=== PATIENT | female | born 1970 | race Caucasian/White ===

== ENCOUNTER 2016-12-22 17:14 | Inpatient (IN) | payer OTHER ==
[~2016-12-22 17:14] MED LIST: ADVIL200 M1 PO; AMITIZA24 MC1 PO; BUSPIRONE HCL; BUSPIRONE HCL10 M2 PO; BUSPIRONE HCL30 M1 PO; BUSPIRONE HCL5 GM; CARAFATE1 GM/10 M1 PO; CETAPHIL TP; CHLORASEPTIC SO2 LOZ; CHOLESTYRAMINE P4 GM PO; CLOBETASOL PROP15 G1 TP; COMPAZINE25 M1 PR; FLAGYL500 M1 PO; HYDROCODON-ACE1 EA16 PO; KEFLEX500 M4 PO; KLOR-CON 1010 ME1 PO; LAMICTAL25 M2 PO; LAMOTRIGINE PO; LAMOTRIGINE100 M2 PO; LYRICA100 MG/CAP PO; LYRICA75 MG/CAP PO; MAGNESIUM250 M3 PO; MIRALAX17 G2 PO; NEURONTIN300 M1 PO; NICODERM CQ1 EAC2 TD; NITRO-BID1 INCH TP; NORCO 5-325 TA1 EACH PO; PERCOCET 10-321 EACH PO; PERCOCET 5-3251 EACH PO; POTASSIUM CHLO20 ME3 PO; POTASSIUM99 M5 PO; PRAZOSIN HCL2 M2 PO; PRISTIQ ER100 MG PO; PRISTIQ ER50 MG PO; PRISTIQ50 MG PO; PROTONIX40 M2 PO; TEMOVATE30 G1 TP; TOPAMAX200 MG; TOPAMAX200 MG PO; TRAZODONE HCL50 M1 PO; TYLENOL325 M2 PO; VITAMIN B-1100 M3 PO; WOMEN'S DAILY1 EAC4 PO; ZOFRAN ODT4 MG PO; ZOFRAN ODT8 MG PO; ZOFRAN4 M2 PO; [UNRECOGNIZED DRUG - OTHER]
[2016-12-22] MEDS ORDERED: PROCHLORPERAZINE PR (17:28)
[2016-12-22] MEDS ORDERED: [UNRECOGNIZED DRUG - OTHER] PR (17:28)
[2016-12-22 17:47] LABS: BASO % 0.2 % (0-2); HCT-HEMATOCRIT 41.5 % (34.0-49.0); HGB-HEMOGLOBIN 14.2 gm/dl (12.0-15.5); IMMATURE GRANULOCYTES ABSOLUTE 0.01 tho/cmm (0-0.03); IMMATURE GRANULOCYTES PERCENT 0.1 % (0-0.3); LYMPH % 7.6 % (20-45); LYMPH ABSOLUTE COUNT 0.8 tho/cmm (0.8-4.5); MCH (MEAN CORPUSCULAR HGB) 31.1 pg (28.0-32.0); MCHC MEAN CORPUSCULAR HGB CONC 34.2 % (32.0-36.0); MCV (MEAN CELL VOLUME) 90.8 fl (82.0-96.0); MEAN PLATELET VOLUME 9.6 cmc (9.4-12.4); MONO % 5.6 % (0-12); MONOCYTE ABSOLUTE COUNT 0.6 tho/cmm (0.0-1.2); NEUTROPHILS % 86.5 % (40-80); PLATELET COUNT 236 tho/cmm (150-450); RED BLOOD COUNT 4.57 mil/cmm (4.00-5.20); RED CELL DISTRIBUTION WIDTH 16.1 % (12.4-16.4); WHITE BLOOD COUNT 10.4 tho/cmm (4.0-10.0)
[2016-12-22 18:01] LABS: PREGNANCY-SERUM NEGATIVE (NEGATIVE)
[2016-12-22 18:02] LABS: ALB/GLOB RATIO 1.1 (0.8-2.0); ALBUMIN 4.3 g/dl (3.5-5.0); ALKALINE PHOSPHATASE 146 U/L (33-138); ALT/SGPT 55 U/L (12-78); BILIRUBIN,TOTAL 1.5 mg/dl (0-1.5); BLOOD UREA NITROGEN 7 mg/dl (6-24); CALCIUM 9.7 mg/dl (8.5-10.5); CARBON DIOXIDE-VENOUS 19 mmol/L (22-32); CHLORIDE 90 mmol/l (96-110); CREATININE 0.68 mg/dl (0.50-1.10); GLUCOSE 148 mg/dL (70-110); LIPASE 86 U/L (73-393); SODIUM 135 mmol/L (135-145); eGFR VALUE FOR BLACK >90 mL/Min
[2016-12-22 18:09] LABS: ANION GAP 29 mmol/L (0-20); AST/SGOT 74 U/L (10-40); POTASSIUM 3.1 mmol/L (3.7-5.1)
[2016-12-22 18:37] LABS: MAGNESIUM 1.6 mg/dl (1.3-2.6)
[2016-12-22 18:38] LABS: TSH-THYROID STIMULATING HORM. 1.87 uIU/ml (0.40-3.80)
[2016-12-22 20:57] LABS: URINE APPEARANCE CLEAR; URINE BILIRUBIN NEGATIVE (NEG); URINE BLOOD NEGATIVE (NEG); URINE COLOR YELLOW; URINE GLUCOSE (UA) NEGATIVE (NEG); URINE KETONE LARGE (NEG); URINE LEUKOCYTE ESTERASE NEGATIVE (NEG); URINE NITRITE NEGATIVE (NEG); URINE PROTEIN NEGATIVE (NEG)
[2016-12-23 06:24] LABS: ANION GAP 15 mmol/L (0-20); BLOOD UREA NITROGEN 3 mg/dl (6-24); CALCIUM 8.2 mg/dl (8.5-10.5); CARBON DIOXIDE-VENOUS 25 mmol/L (22-32); CHLORIDE 101 mmol/l (96-110); CREATININE 0.48 mg/dl (0.50-1.10); GLUCOSE 97 mg/dL (70-110); POTASSIUM 3.3 mmol/L (3.7-5.1); SODIUM 138 mmol/L (135-145); eGFR VALUE FOR BLACK >90 mL/Min
[2016-12-23 06:26] LABS: BASO % 0.2 % (0-2); EOS % 0.2 % (0-7); HGB-HEMOGLOBIN 11.9 gm/dl (12.0-15.5); IMMATURE GRANULOCYTES ABSOLUTE 0.02 tho/cmm (0-0.03); IMMATURE GRANULOCYTES PERCENT 0.2 % (0-0.3); LYMPH % 13.7 % (20-45); LYMPH ABSOLUTE COUNT 1.6 tho/cmm (0.8-4.5); MCH (MEAN CORPUSCULAR HGB) 30.5 pg (28.0-32.0); MCV (MEAN CELL VOLUME) 94.9 fl (82.0-96.0); MEAN PLATELET VOLUME 9.9 cmc (9.4-12.4); MONO % 11.7 % (0-12); MONOCYTE ABSOLUTE COUNT 1.4 tho/cmm (0.0-1.2); NEUTROPHIL ABSOLUTE COUNT 8.7 tho/cmm (1.6-8.0); NEUTROPHIL-AUTOMATED 8.7 tho/cmm (1.6-8.0); PLATELET COUNT 218 tho/cmm (150-450); RED CELL DISTRIBUTION WIDTH 16.9 % (12.4-16.4); WHITE BLOOD COUNT 11.8 tho/cmm (4.0-10.0)
[2016-12-23 06:43] LABS: MCHC MEAN CORPUSCULAR HGB CONC 32.2 % (32.0-36.0)
[2016-12-24 06:03] LABS: BASO % 0.4 % (0-2); EOS % 1.7 % (0-7); EOSINOPHIL ABSOLUTE COUNT 0.1 tho/cmm (0.0-0.7); HCT-HEMATOCRIT 34.8 % (34.0-49.0); HGB-HEMOGLOBIN 11.2 gm/dl (12.0-15.5); IMMATURE GRANULOCYTES ABSOLUTE 0.01 tho/cmm (0-0.03); IMMATURE GRANULOCYTES PERCENT 0.2 % (0-0.3); LYMPH % 26.8 % (20-45); LYMPH ABSOLUTE COUNT 1.3 tho/cmm (0.8-4.5); MCH (MEAN CORPUSCULAR HGB) 30.9 pg (28.0-32.0); MCHC MEAN CORPUSCULAR HGB CONC 32.2 % (32.0-36.0); MCV (MEAN CELL VOLUME) 95.9 fl (82.0-96.0); MEAN PLATELET VOLUME 9.8 cmc (9.4-12.4); MONO % 10.5 % (0-12); MONOCYTE ABSOLUTE COUNT 0.5 tho/cmm (0.0-1.2); NEUTROPHIL ABSOLUTE COUNT 2.9 tho/cmm (1.6-8.0); NEUTROPHIL-AUTOMATED 2.9 tho/cmm (1.6-8.0); NEUTROPHILS % 60.4 % (40-80); PLATELET COUNT 161 tho/cmm (150-450); RED BLOOD COUNT 3.63 mil/cmm (4.00-5.20); RED CELL DISTRIBUTION WIDTH 16.6 % (12.4-16.4)
[2016-12-24 06:17] LABS: ANION GAP 10 mmol/L (0-20); BLOOD UREA NITROGEN 1 mg/dl (6-24); CALCIUM 8.1 mg/dl (8.5-10.5); CARBON DIOXIDE-VENOUS 30 mmol/L (22-32); CHLORIDE 106 mmol/l (96-110); CREATININE 0.43 mg/dl (0.50-1.10); GLUCOSE 87 mg/dL (70-110); MAGNESIUM 1.9 mg/dl (1.3-2.6); POTASSIUM 3.2 mmol/L (3.7-5.1); SODIUM 143 mmol/L (135-145); eGFR VALUE FOR BLACK >90 mL/Min
[2016-12-24 06:22] LABS: WHITE BLOOD COUNT 4.7 tho/cmm (4.0-10.0)
[2016-12-25 05:04] LABS: ANION GAP 14 mmol/L (0-20); BLOOD UREA NITROGEN 1 mg/dl (6-24); CALCIUM 8.4 mg/dl (8.5-10.5); CARBON DIOXIDE-VENOUS 24 mmol/L (22-32); CHLORIDE 105 mmol/l (96-110); CREATININE 0.36 mg/dl (0.50-1.10); GLUCOSE 90 mg/dL (70-110); SODIUM 139 mmol/L (135-145); eGFR VALUE FOR BLACK >90 mL/Min
[2016-12-25 05:22] LABS: POTASSIUM 3.6 mmol/L (3.7-5.1)
[2016-12-25] MEDS ORDERED: TYLENOL325 M2 PO (13:04)
[2016-12-25] MEDS ORDERED: ATIVAN1 M2 PO (13:05)
[2016-12-25] MEDS ORDERED: COLESTID1 GM PO (13:07)
[2017-05-10] MEDS ORDERED: TRANSDERM-SCOP1 EACH TD (11:02)
[2017-05-10] MEDS ORDERED: ERYTHROMYCIN1 GM OP (11:03)
[2017-05-10] MEDS ORDERED: MAGNESIUM OXID400 M1 PO (11:03)
[2017-05-10] MEDS ORDERED: ABILIFY5 M1 PO (11:04)
[2017-05-14] MEDS ORDERED: TUMS200 MG PO (17:00)
[2017-05-14] MEDS ORDERED: POTASSIUM CHLO20 ME3 PO (17:01)
== END 2016-12-25 13:40 | DRG 392 ==
LOC: EDMED 17:14 → EMR2 21:55 → 5WE 22:10
PROVIDERS: Emergency Medicine; Internal Medicine; ADMIT Hospitalist
PROC: 0DBP8ZX Excision of Rectum, Via Natural or Artificial Opening Endoscopic, Diagnostic (ICD-10-PCS; principal; 2016-12-25)
PROC: 0DBH8ZX Excision of Cecum, Via Natural or Artificial Opening Endoscopic, Diagnostic (ICD-10-PCS; 2016-12-25)
DX: K52.9 Noninfective gastroenteritis and colitis, unspecified (principal); G62.9 Polyneuropathy, unspecified; K90.0 Celiac disease; E87.6 Hypokalemia; K58.9 Irritable bowel syndrome, unspecified; F32.9 Major depressive disorder, single episode, unspecified; Z86.73 Personal history of transient ischemic attack (TIA), and cerebral infarction without residual deficits; Z87.820 Personal history of traumatic brain injury; Z88.0 Allergy status to penicillin; F17.210 Nicotine dependence, cigarettes, uncomplicated; R03.0 Elevated blood-pressure reading, without diagnosis of hypertension; Z87.11 Personal history of peptic ulcer disease; K62.1 Rectal polyp; K44.9 Diaphragmatic hernia without obstruction or gangrene
CPT/HCPCS: G0480; J0360; J0780; J1200; J1956; J2270; J2405; J2765; J3475; J3480; J7030; P9612; Q9967

== ENCOUNTER 2017-01-03 12:12 | Inpatient (IN) | payer OTHER ==
[~2017-01-03 12:12] MED LIST changes: +ATIVAN1 M2 PO; +COLESTID1 GM PO; +PROCHLORPERAZINE PR; +[UNRECOGNIZED DRUG - OTHER] PR
[2017-01-03 12:53] LABS: BASO % 0.2 % (0-2); HCT-HEMATOCRIT 42.6 % (34.0-49.0); HGB-HEMOGLOBIN 14.5 gm/dl (12.0-15.5); IMMATURE GRANULOCYTES ABSOLUTE 0.03 tho/cmm (0-0.03); IMMATURE GRANULOCYTES PERCENT 0.2 % (0-0.3); LYMPH ABSOLUTE COUNT 0.8 tho/cmm (0.8-4.5); MCH (MEAN CORPUSCULAR HGB) 30.9 pg (28.0-32.0); MONOCYTE ABSOLUTE COUNT 0.7 tho/cmm (0.0-1.2); NEUTROPHIL ABSOLUTE COUNT 12.5 tho/cmm (1.6-8.0); NEUTROPHIL-AUTOMATED 12.5 tho/cmm (1.6-8.0); NEUTROPHILS % 88.6 % (40-80); PLATELET COUNT 288 tho/cmm (150-450); RED BLOOD COUNT 4.69 mil/cmm (4.00-5.20); RED CELL DISTRIBUTION WIDTH 16.9 % (12.4-16.4); WHITE BLOOD COUNT 14.1 tho/cmm (4.0-10.0)
[2017-01-03 12:56] LABS: MCV (MEAN CELL VOLUME) 90.8 fl (82.0-96.0)
[2017-01-03] MEDS ORDERED: AMITIZA24 MC1 PO (12:58)
[2017-01-03] MEDS ORDERED: NORCO 5-325 TA1 EACH PO (12:58)
[2017-01-03 13:06] LABS: ALB/GLOB RATIO 1.1 (0.8-2.0); ALBUMIN 4.5 g/dl (3.5-5.0); ALCOHOL (ETOH) <10 mg/dl (<10); ALKALINE PHOSPHATASE 162 U/L (33-138); ALT/SGPT 94 U/L (12-78); ANION GAP 27 mmol/L (0-20); AST/SGOT 61 U/L (10-40); BILIRUBIN,TOTAL 1.3 mg/dl (0-1.5); BLOOD UREA NITROGEN 9 mg/dl (6-24); CALCIUM 9.6 mg/dl (8.5-10.5); CARBON DIOXIDE-VENOUS 21 mmol/L (22-32); CHLORIDE 86 mmol/l (96-110); CREATININE 0.88 mg/dl (0.50-1.10); GLUCOSE 171 mg/dL (70-110); LIPASE 95 U/L (73-393); POTASSIUM 3.3 mmol/L (3.7-5.1); SODIUM 131 mmol/L (135-145); eGFR VALUE FOR BLACK >90 mL/Min
[2017-01-03 13:14] LABS: C-REACTIVE PROTEIN <0.3 mg/dl (0-0.9)
[2017-01-03 13:35] LABS: URINE BILIRUBIN NEGATIVE (NEG); URINE BLOOD NEGATIVE (NEG); URINE GLUCOSE (UA) NEGATIVE (NEG); URINE KETONE LARGE (NEG); URINE LEUKOCYTE ESTERASE NEGATIVE (NEG); URINE NITRITE NEGATIVE (NEG); URINE PROTEIN SMALL (NEG)
[2017-01-03 13:36] LABS: URINE APPEARANCE CLEAR; URINE COLOR YELLOW
[2017-01-03 13:41] LABS: URINE RBC 0 /[HPF] (0-5); URINE WBC 0 /[HPF] (0-5)
[2017-01-03 19:39] LABS: INR 0.9 INR (0.9-1.1)
[2017-01-03 19:50] LABS: ANION GAP 16 mmol/L (0-20); BLOOD UREA NITROGEN 8 mg/dl (6-24); CALCIUM 7.9 mg/dl (8.5-10.5); CARBON DIOXIDE-VENOUS 23 mmol/L (22-32); CHLORIDE 99 mmol/l (96-110); CREATININE 0.54 mg/dl (0.50-1.10); GLUCOSE 110 mg/dL (70-110); POTASSIUM 3.4 mmol/L (3.7-5.1); SODIUM 135 mmol/L (135-145); eGFR VALUE FOR BLACK >90 mL/Min
[2017-01-03 20:08] LABS: PROCALCITONIN 0.09 ng/ml (0.05-0.09)
[2017-01-03 20:30] LABS: ALB/GLOB RATIO 1.2 (0.8-2.0); ALBUMIN 3.4 g/dl (3.5-5.0); ALKALINE PHOSPHATASE 120 U/L (33-138); ALT/SGPT 65 U/L (12-78); ANION GAP 14 mmol/L (0-20); AST/SGOT 41 U/L (10-40); BILIRUBIN,TOTAL 0.7 mg/dl (0-1.5); BLOOD UREA NITROGEN 8 mg/dl (6-24); CALCIUM 8.1 mg/dl (8.5-10.5); CARBON DIOXIDE-VENOUS 26 mmol/L (22-32); CHLORIDE 98 mmol/l (96-110); GLUCOSE 112 mg/dL (70-110); POTASSIUM 3.4 mmol/L (3.7-5.1); SODIUM 135 mmol/L (135-145); eGFR VALUE FOR BLACK >90 mL/Min
[2017-01-04 06:33] LABS: BASO % 0.3 % (0-2); EOS % 0.6 % (0-7); EOSINOPHIL ABSOLUTE COUNT 0.1 tho/cmm (0.0-0.7); HCT-HEMATOCRIT 36.4 % (34.0-49.0); HGB-HEMOGLOBIN 11.9 gm/dl (12.0-15.5); IMMATURE GRANULOCYTES ABSOLUTE 0.02 tho/cmm (0-0.03); IMMATURE GRANULOCYTES PERCENT 0.2 % (0-0.3); LYMPH % 19.9 % (20-45); LYMPH ABSOLUTE COUNT 1.9 tho/cmm (0.8-4.5); MCH (MEAN CORPUSCULAR HGB) 30.7 pg (28.0-32.0); MCHC MEAN CORPUSCULAR HGB CONC 32.7 % (32.0-36.0); MCV (MEAN CELL VOLUME) 93.8 fl (82.0-96.0); MEAN PLATELET VOLUME 9.7 cmc (9.4-12.4); MONO % 6.6 % (0-12); MONOCYTE ABSOLUTE COUNT 0.6 tho/cmm (0.0-1.2); NEUTROPHIL ABSOLUTE COUNT 7.1 tho/cmm (1.6-8.0); NEUTROPHIL-AUTOMATED 7.1 tho/cmm (1.6-8.0); NEUTROPHILS % 72.4 % (40-80); PLATELET COUNT 238 tho/cmm (150-450); RED BLOOD COUNT 3.88 mil/cmm (4.00-5.20); RED CELL DISTRIBUTION WIDTH 17.2 % (12.4-16.4); WHITE BLOOD COUNT 9.7 tho/cmm (4.0-10.0)
--- NOTE | 2017-01-04 14:05 | NUR ---
VIRTUAL CARE NOTE: pt sitting up in her bed, states that she still feels nauseated, but has noted mild improvement. encouraged her to ambulate. she is taking clear liquids without much difficulty, but is taking it slow. states the produce manager was in the room discussing gluten information with her. pt is gluten intolerant, and has known to be gluten intolerant for a while, per pt. pt requests tv channel listing-I printed one and had staff bring it in to her. she has no further questions or needs. will continue to monitor. electronic chart reviewed.
[2017-01-05 06:10] LABS: BASO ABSOLUTE COUNT 0.1 tho/cmm (0.0-0.2); EOS % 1.6 % (0-7); EOSINOPHIL ABSOLUTE COUNT 0.1 tho/cmm (0.0-0.7); HCT-HEMATOCRIT 34.3 % (34.0-49.0); IMMATURE GRANULOCYTES ABSOLUTE 0.02 tho/cmm (0-0.03); IMMATURE GRANULOCYTES PERCENT 0.4 % (0-0.3); LYMPH % 36.1 % (20-45); LYMPH ABSOLUTE COUNT 1.8 tho/cmm (0.8-4.5); MCH (MEAN CORPUSCULAR HGB) 29.9 pg (28.0-32.0); MCHC MEAN CORPUSCULAR HGB CONC 32.1 % (32.0-36.0); MCV (MEAN CELL VOLUME) 93.2 fl (82.0-96.0); MEAN PLATELET VOLUME 9.8 cmc (9.4-12.4); MONO % 8.8 % (0-12); MONOCYTE ABSOLUTE COUNT 0.4 tho/cmm (0.0-1.2); NEUTROPHIL ABSOLUTE COUNT 2.6 tho/cmm (1.6-8.0); NEUTROPHIL-AUTOMATED 2.6 tho/cmm (1.6-8.0); NEUTROPHILS % 52.1 % (40-80); PLATELET COUNT 204 tho/cmm (150-450); RED BLOOD COUNT 3.68 mil/cmm (4.00-5.20); RED CELL DISTRIBUTION WIDTH 16.8 % (12.4-16.4)
[2017-01-05 06:29] LABS: ANION GAP 11 mmol/L (0-20); BLOOD UREA NITROGEN 1 mg/dl (6-24); CALCIUM 8.5 mg/dl (8.5-10.5); CARBON DIOXIDE-VENOUS 28 mmol/L (22-32); CHLORIDE 107 mmol/l (96-110); GLUCOSE 94 mg/dL (70-110); POTASSIUM 3.3 mmol/L (3.7-5.1); SODIUM 143 mmol/L (135-145)
[2017-01-05 07:17] LABS: CREATININE 0.47 mg/dl (0.50-1.10); eGFR VALUE FOR BLACK >90 mL/Min
[2017-01-06 04:58] LABS: ANION GAP 11 mmol/L (0-20); BLOOD UREA NITROGEN 2 mg/dl (6-24); CALCIUM 9.1 mg/dl (8.5-10.5); CARBON DIOXIDE-VENOUS 31 mmol/L (22-32); CHLORIDE 102 mmol/l (96-110); CREATININE 0.56 mg/dl (0.50-1.10); GLUCOSE 98 mg/dL (70-110); POTASSIUM 3.4 mmol/L (3.7-5.1); SODIUM 141 mmol/L (135-145); eGFR VALUE FOR BLACK >90 mL/Min
[2017-01-06] MEDS ORDERED: ZOFRAN ODT8 MG PO (15:23)
[2017-01-06] MEDS ORDERED: PROMETHAZINE HC25 M3 PO (15:25)
[2017-01-06] MEDS ORDERED: PHENERGAN25 M4 PR (15:28)
[2017-01-06] MEDS ORDERED: [UNRECOGNIZED DRUG - REMARK] (15:30)
[2017-01-06] MEDS ORDERED: STOP HOME MEDICATION (15:31)
--- NOTE | 2017-01-06 15:56 | NUR ---
VIRTUAL CARE NOTE: PT DRESSED READY FOR DISCHARGE INSTRUCTIONS. INFORMATION GIVEN TO PT. PT DENIES QUESTIONS OR CONCERNS. INFORMED FLOOR NURSE DISCHARGE TEACHING DONE.
[2017-05-10] MEDS ORDERED: TRANSDERM-SCOP1 EACH TD (11:02)
[2017-05-10] MEDS ORDERED: MAGNESIUM OXID400 M1 PO (11:03)
[2017-05-10] MEDS ORDERED: ERYTHROMYCIN1 GM OP (11:03)
[2017-05-10] MEDS ORDERED: ABILIFY5 M1 PO (11:04)
[2017-05-14] MEDS ORDERED: TUMS200 MG PO (17:00)
[2017-05-14] MEDS ORDERED: POTASSIUM CHLO20 ME3 PO (17:01)
== END 2017-01-06 16:00 | DRG 103 ==
LOC: EDMED 12:12 → EMR2 16:17 → 5WD 17:15
PROVIDERS: Emergency Medicine; Family Medicine; Internal Medicine; ADMIT Family Medicine
DX: G43.A0 Cyclical vomiting, in migraine, not intractable (principal); E87.2 Acidosis; E87.1 Hypo-osmolality and hyponatremia; E83.42 Hypomagnesemia; E87.6 Hypokalemia; F32.9 Major depressive disorder, single episode, unspecified; G62.9 Polyneuropathy, unspecified; I95.1 Orthostatic hypotension; K21.9 Gastro-esophageal reflux disease without esophagitis; K90.0 Celiac disease; F10.21 Alcohol dependence, in remission; F17.210 Nicotine dependence, cigarettes, uncomplicated; E86.0 Dehydration; K58.9 Irritable bowel syndrome, unspecified; Z87.820 Personal history of traumatic brain injury; Z88.0 Allergy status to penicillin; Z79.899 Other long term (current) drug therapy
CPT/HCPCS: C9113; G0480; J0692; J1956; J2060; J2405; J3475; J3480; J7030

== ENCOUNTER 2017-01-31 22:58 | Observation (INO) | payer OTHER ==
[~2017-01-31 22:58] MED LIST changes: +PHENERGAN25 M4 PR; +PROMETHAZINE HC25 M3 PO; +STOP HOME MEDICATION; +[UNRECOGNIZED DRUG - REMARK]
[2017-01-31] MEDS ORDERED: CARAFATE1 GM/10 M1 PO (23:46)
[2017-01-31] MEDS ORDERED: TRANSDERM-SCOP1 EACH TD (23:47)
[2017-02-01 00:41] LABS: BASO % 0.4 % (0-2); EOS % 0.2 % (0-7); HCT-HEMATOCRIT 41.6 % (34.0-49.0); HGB-HEMOGLOBIN 14.2 gm/dl (12.0-15.5); IMMATURE GRANULOCYTES ABSOLUTE 0.02 tho/cmm (0-0.03); IMMATURE GRANULOCYTES PERCENT 0.2 % (0-0.3); LYMPH % 13.9 % (20-45); LYMPH ABSOLUTE COUNT 1.5 tho/cmm (0.8-4.5); MCH (MEAN CORPUSCULAR HGB) 30.7 pg (28.0-32.0); MCHC MEAN CORPUSCULAR HGB CONC 34.1 % (32.0-36.0); MEAN PLATELET VOLUME 10.7 cmc (9.4-12.4); MONO % 5.9 % (0-12); MONOCYTE ABSOLUTE COUNT 0.6 tho/cmm (0.0-1.2); NEUTROPHIL ABSOLUTE COUNT 8.6 tho/cmm (1.6-8.0); NEUTROPHIL-AUTOMATED 8.6 tho/cmm (1.6-8.0); NEUTROPHILS % 79.4 % (40-80); PLATELET COUNT 235 tho/cmm (150-450); RED BLOOD COUNT 4.62 mil/cmm (4.00-5.20); RED CELL DISTRIBUTION WIDTH 15.7 % (12.4-16.4); WHITE BLOOD COUNT 10.9 tho/cmm (4.0-10.0)
[2017-02-01 00:54] LABS: ALB/GLOB RATIO 1.1 (0.8-2.0); ALBUMIN 4.8 g/dl (3.5-5.0); ALKALINE PHOSPHATASE 148 U/L (33-138); ALT/SGPT 45 U/L (12-78); ANION GAP 34 mmol/L (0-20); AST/SGOT 56 U/L (10-40); BILIRUBIN,TOTAL 1.5 mg/dl (0-1.5); BLOOD UREA NITROGEN 13 mg/dl (6-24); CALCIUM 10.5 mg/dl (8.5-10.5); CARBON DIOXIDE-VENOUS 16 mmol/L (22-32); CHLORIDE 84 mmol/l (96-110); CREATININE 0.91 mg/dl (0.50-1.10); GLUCOSE 146 mg/dL (70-110); LIPASE 155 U/L (73-393); POTASSIUM 3.2 mmol/L (3.7-5.1); SODIUM 131 mmol/L (135-145); eGFR VALUE FOR BLACK 88 mL/Min
[2017-02-01] MEDS ORDERED: MIRALAX17 G2 PO (05:31)
[2017-02-01 09:46] LABS: ANION GAP 15 mmol/L (0-20); BLOOD UREA NITROGEN 12 mg/dl (6-24); CALCIUM 8.3 mg/dl (8.5-10.5); CARBON DIOXIDE-VENOUS 25 mmol/L (22-32); CHLORIDE 100 mmol/l (96-110); CREATININE 0.59 mg/dl (0.50-1.10); GLUCOSE 173 mg/dL (70-110); SODIUM 136 mmol/L (135-145); eGFR VALUE FOR BLACK >90 mL/Min
[2017-02-01 09:48] LABS: POTASSIUM 4.2 mmol/L (3.7-5.1)
[2017-02-01] MEDS ORDERED: TRANSDERM-SCOP1 EACH TD (12:24)
[2017-05-10] MEDS ORDERED: TRANSDERM-SCOP1 EACH TD (11:02)
[2017-05-10] MEDS ORDERED: ERYTHROMYCIN1 GM OP (11:03)
[2017-05-10] MEDS ORDERED: MAGNESIUM OXID400 M1 PO (11:03)
[2017-05-10] MEDS ORDERED: ABILIFY5 M1 PO (11:04)
[2017-05-14] MEDS ORDERED: TUMS200 MG PO (17:00)
[2017-05-14] MEDS ORDERED: POTASSIUM CHLO20 ME3 PO (17:01)
== END 2017-02-01 13:13 ==
LOC: EDMED 22:58 → EMR2 02-01 05:03 → CAR1 02-01 05:22
PROVIDERS: Family Medicine; Registered Nurse; ADMIT Hospitalist
DX: G43.A0 Cyclical vomiting, in migraine, not intractable (principal); E87.1 Hypo-osmolality and hyponatremia; E87.6 Hypokalemia; F32.9 Major depressive disorder, single episode, unspecified; R10.13 Epigastric pain; K76.0 Fatty (change of) liver, not elsewhere classified; G62.9 Polyneuropathy, unspecified; F17.210 Nicotine dependence, cigarettes, uncomplicated; Z88.0 Allergy status to penicillin; Z88.1 Allergy status to other antibiotic agents; Z88.8 Allergy status to other drugs, medicaments and biological substances; Z87.19 Personal history of other diseases of the digestive system; Z90.49 Acquired absence of other specified parts of digestive tract; Z90.710 Acquired absence of both cervix and uterus; Z98.890 Other specified postprocedural states
CPT/HCPCS: G0378; J0780; J1100; J1200; J1885; J2765; J3480; J7030

== ENCOUNTER 2017-02-26 04:30 | Inpatient (IN) | payer OTHER ==
[~2017-02-26 04:30] MED LIST changes: +TRANSDERM-SCOP1 EACH TD
[2017-02-26] MEDS ORDERED: LYRICA100 MG/CAP PO (04:56)
[2017-02-26 05:06] LABS: BASO % 0.6 % (0-2); EOS % 0.4 % (0-7); HGB-HEMOGLOBIN 11.6 gm/dl (12.0-15.5); IMMATURE GRANULOCYTES ABSOLUTE 0.01 tho/cmm (0-0.03); IMMATURE GRANULOCYTES PERCENT 0.1 % (0-0.3); LYMPH % 14.5 % (20-45); MCH (MEAN CORPUSCULAR HGB) 29.8 pg (28.0-32.0); MCHC MEAN CORPUSCULAR HGB CONC 33.1 % (32.0-36.0); MEAN PLATELET VOLUME 9.6 cmc (9.4-12.4); MONO % 8.2 % (0-12); MONOCYTE ABSOLUTE COUNT 0.6 tho/cmm (0.0-1.2); NEUTROPHIL ABSOLUTE COUNT 5.4 tho/cmm (1.6-8.0); NEUTROPHIL-AUTOMATED 5.4 tho/cmm (1.6-8.0); NEUTROPHILS % 76.2 % (40-80); PLATELET COUNT 230 tho/cmm (150-450); RED BLOOD COUNT 3.89 mil/cmm (4.00-5.20); RED CELL DISTRIBUTION WIDTH 16.5 % (12.4-16.4); WHITE BLOOD COUNT 7.1 tho/cmm (4.0-10.0)
[2017-02-26 05:23] LABS: ALB/GLOB RATIO 1.1 (0.8-2.0); ALKALINE PHOSPHATASE 158 U/L (33-138); ALT/SGPT 49 U/L (12-78); ANION GAP 21 mmol/L (0-20); AST/SGOT 54 U/L (10-40); BILIRUBIN,TOTAL 0.6 mg/dl (0-1.5); BLOOD UREA NITROGEN 6 mg/dl (6-24); CALCIUM 8.9 mg/dl (8.5-10.5); CARBON DIOXIDE-VENOUS 22 mmol/L (22-32); CHLORIDE 100 mmol/l (96-110); CREATININE 0.72 mg/dl (0.50-1.10); GLUCOSE 166 mg/dL (70-110); LIPASE 126 U/L (73-393); POTASSIUM 3.1 mmol/L (3.7-5.1); SODIUM 140 mmol/L (135-145); eGFR VALUE FOR BLACK >90 mL/Min
[2017-02-26 09:49] LABS: INR 0.9 INR (0.9-1.1); PROTHROMBIN TIME 10.3 SECONDS (9.0-13.6)
[2017-02-26 10:00] LABS: MAGNESIUM 2.5 mg/dl (1.8-2.6); PHOSPHOROUS 4.3 mg/dl (2.5-4.9)
[2017-02-26 10:03] LABS: C-REACTIVE PROTEIN <0.3 mg/dl (0-0.9)
[2017-02-26 10:14] LABS: PROCALCITONIN 0.07 ng/ml (0.05-0.09)
[2017-02-27 03:47] LABS: BASO % 0.3 % (0-2); EOS % 1.6 % (0-7); EOSINOPHIL ABSOLUTE COUNT 0.1 tho/cmm (0.0-0.7); HCT-HEMATOCRIT 31.9 % (34.0-49.0); LYMPH % 35.5 % (20-45); LYMPH ABSOLUTE COUNT 1.1 tho/cmm (0.8-4.5); MCH (MEAN CORPUSCULAR HGB) 29.8 pg (28.0-32.0); MCHC MEAN CORPUSCULAR HGB CONC 31.3 % (32.0-36.0); MCV (MEAN CELL VOLUME) 94.9 fl (82.0-96.0); MEAN PLATELET VOLUME 9.7 cmc (9.4-12.4); MONO % 6.8 % (0-12); MONOCYTE ABSOLUTE COUNT 0.2 tho/cmm (0.0-1.2); NEUTROPHIL ABSOLUTE COUNT 1.7 tho/cmm (1.6-8.0); NEUTROPHIL-AUTOMATED 1.7 tho/cmm (1.6-8.0); NEUTROPHILS % 55.8 % (40-80); PLATELET COUNT 181 tho/cmm (150-450); RED BLOOD COUNT 3.36 mil/cmm (4.00-5.20); RED CELL DISTRIBUTION WIDTH 17.2 % (12.4-16.4); WHITE BLOOD COUNT 3.1 tho/cmm (4.0-10.0)
[2017-02-27 03:48] LABS: ANION GAP 12 mmol/L (0-20); BLOOD UREA NITROGEN 2 mg/dl (6-24); CARBON DIOXIDE-VENOUS 26 mmol/L (22-32); CHLORIDE 110 mmol/l (96-110); CREATININE 0.47 mg/dl (0.50-1.10); GLUCOSE 95 mg/dL (70-110); MAGNESIUM 2.1 mg/dl (1.8-2.6); PHOSPHOROUS 3.1 mg/dl (2.5-4.9); SODIUM 144 mmol/L (135-145); eGFR VALUE FOR BLACK >90 mL/Min
[2017-02-27 03:57] LABS: CHOLESTEROL 168 mg/dl (120-200); HDL CHOLESTEROL 69 mg/dl (40-60); LDL CHOLESTEROL 83 mg/dl (0-99); TRIGLYCERIDES 84 mg/dl (<149); VLDL 17 mg/dl (0-30)
[2017-02-27 04:01] LABS: POTASSIUM 4.2 mmol/L (3.7-5.1)
[2017-02-28 05:31] LABS: BLOOD UREA NITROGEN 2 mg/dl (6-24); eGFR VALUE FOR BLACK >90 mL/Min
[2017-03-01 05:03] LABS: ANION GAP 14 mmol/L (0-20); BLOOD UREA NITROGEN 6 mg/dl (6-24); CARBON DIOXIDE-VENOUS 29 mmol/L (22-32); CHLORIDE 101 mmol/l (96-110); CREATININE 0.62 mg/dl (0.50-1.10); GLUCOSE 123 mg/dL (70-110); MAGNESIUM 1.8 mg/dl (1.8-2.6); POTASSIUM 3.7 mmol/L (3.7-5.1); SODIUM 140 mmol/L (135-145); eGFR VALUE FOR BLACK >90 mL/Min
[2017-03-02 06:07] LABS: POTASSIUM 4.2 mmol/L (3.7-5.1)
[2017-03-03 14:29] LABS: POTASSIUM 4.5 mmol/L (3.7-5.1)
[2017-03-04 05:12] LABS: MAGNESIUM 2.2 mg/dl (1.8-2.6); POTASSIUM 4.8 mmol/L (3.7-5.1)
[2017-03-05] MEDS ORDERED: ROXICODONE5 M2 PO (07:38)
[2017-03-05] MEDS ORDERED: TYLENOL EXTRA500 M1 PO (07:39)
[2017-05-10] MEDS ORDERED: TRANSDERM-SCOP1 EACH TD (11:02)
[2017-05-10] MEDS ORDERED: MAGNESIUM OXID400 M1 PO (11:03)
[2017-05-10] MEDS ORDERED: ERYTHROMYCIN1 GM OP (11:03)
[2017-05-10] MEDS ORDERED: ABILIFY5 M1 PO (11:04)
[2017-05-14] MEDS ORDERED: TUMS200 MG PO (17:00)
[2017-05-14] MEDS ORDERED: POTASSIUM CHLO20 ME3 PO (17:01)
== END 2017-03-05 15:13 | disposition home health service (06) | DRG 286 ==
LOC: EDMED 04:30 → EMR2 06:26 → CCU 08:09 → PCUB 02-27 17:45
PROVIDERS: Emergency Medicine; Internal Medicine; Internal Medicine Cardiovascular Disease; ADMIT Hospitalist
PROC: 5A12012 Performance of Cardiac Output, Single, Manual (ICD-10-PCS; 2017-02-26)
PROC: 05HC33Z Insertion of Infusion Device into Left Basilic Vein, Percutaneous Approach (ICD-10-PCS; 2017-02-26)
PROC: 4A023N7 Measurement of Cardiac Sampling and Pressure, Left Heart, Percutaneous Approach (ICD-10-PCS; principal; 2017-02-27)
PROC: B2161ZZ Fluoroscopy of Right and Left Heart using Low Osmolar Contrast (ICD-10-PCS; 2017-02-27)
DX: I45.81 Long QT syndrome (principal); I46.2 Cardiac arrest due to underlying cardiac condition; I49.01 Ventricular fibrillation; E87.2 Acidosis; I69.351 Hemiplegia and hemiparesis following cerebral infarction affecting right dominant side; K76.0 Fatty (change of) liver, not elsewhere classified; G43.A0 Cyclical vomiting, in migraine, not intractable; K90.0 Celiac disease; K58.9 Irritable bowel syndrome, unspecified; F32.9 Major depressive disorder, single episode, unspecified; G62.9 Polyneuropathy, unspecified; F17.210 Nicotine dependence, cigarettes, uncomplicated; I10 Essential (primary) hypertension; E87.6 Hypokalemia; R73.9 Hyperglycemia, unspecified; F43.10 Post-traumatic stress disorder, unspecified; F41.9 Anxiety disorder, unspecified; Z87.820 Personal history of traumatic brain injury; Z88.1 Allergy status to other antibiotic agents; Z88.0 Allergy status to penicillin; Z91.018 Allergy to other foods; T43.505A Adverse effect of unspecified antipsychotics and neuroleptics, initial encounter
CPT/HCPCS: C1751; C1758; C1894; C8929; C9113; J1200; J1644; J1650; J2060; J2250; J2270; J2765; J3010; J3480; J7030; Q9967